=== PATIENT | male | born 1985 | race Caucasian/White ===

== ENCOUNTER 2020-12-17 14:43 | Emergency (ER) | payer BC ==
[~2020-12-17] VITALS: Ht 167.6 cm; Wt 95.3 kg
[2020-12-17 14:47] VITALS: BP_SYST 149
--- NOTE | 2020-12-17 14:50 | NUR ---
Patient to ER bed 03 to gown for evaluation. Side rails up.
--- NOTE | 2020-12-17 14:55 | NUR ---
ER at bedside examining patient.
--- NOTE | 2020-12-17 15:05 | NUR ---
Pt. brought self in after a fall, stated slipped in garage twisted left knee and hurt left wrist breaking fall, pt. denies need for pain med. ice pack to left wrist
[2020-12-17] MEDS ORDERED: IBUP-1971 PO (15:54)
[2020-12-17] MEDS ORDERED: HYDR-3917 PO (15:54)
--- NOTE | 2020-12-17 16:07 | NUR ---
knee immobilizer on and crutches given with instruction
[2020-12-17] MEDS ORDERED: KETOROLAC TROMETHAMINE 60 MG/2 ML VIAL IM ONE (16:30)
[2020-12-17 16:41] VITALS: BP_SYST 132
--- NOTE | 2020-12-17 16:42 | NUR ---
Patient given written and verbal discharge instructions and verbalizes understanding. discussed with patient the results and treatment provided. Patient in stable condition. ID arm band removed. Rx of [place] and [place] given. Patient educated on pain management and to follow up with PMD. Pain Scale 3. Opportunity for questions provided and answered. Medication side effect fact sheet provided.
== END 2020-12-17 16:42 | disposition home or self-care (01) ==
LOC: SED 14:43
DX: S83.92XA Sprain of unspecified site of left knee, initial encounter (principal); S63.502A Unspecified sprain of left wrist, initial encounter; Z79.899 Other long term (current) drug therapy; W01.0XXA Fall on same level from slipping, tripping and stumbling without subsequent striking against object, initial encounter; Y93.89 Activity, other specified; Y92.89 Other specified places as the place of occurrence of the external cause; Y99.8 Other external cause status
CPT/HCPCS: 29505; 73110; 73564; 96372; 99284; J1885

== ENCOUNTER 2022-12-14 16:44 | Emergency (ER) | payer BC ==
[~2022-12-14] VITALS: Ht 188 cm; Wt 97.5 kg
[~2022-12-14 16:44] MED LIST: HYDR-3917 PO; IBUP-1971 PO
[2022-12-14 17:21] VITALS: BP_SYST 133
--- NOTE | 2022-12-14 18:30 | NUR ---
PT BIB SELF AWAKE AND ALERT AOX4, NO SOB. PT C/O FACIAL SWELLING SINCE 1000 TODAY. PT DENIES EATING ANYTHING TODAY. PT HAS NO HX AND NO SX. PT DENIESN/V/D. PT DENIES SOB.
--- NOTE | 2022-12-14 18:31 | NUR ---
MD DR FULTON AT BEDSIDE
[2022-12-14] MEDS ORDERED: DIPHENHYDRAMINE INJ 50 MG/ML VIAL IVP ONE (19:00)
[2022-12-14] MEDS ORDERED: methylPREDNISolone SOD SUCC/PF 62.5 MG/ML VIAL IVP ONE (19:30)
--- NOTE | 2022-12-14 19:37 | NUR ---
REPORT GIVEN TO CARRIE JHAVERI.
[2022-12-14] MEDS ORDERED: FEXO180T94 PO (19:40)
[2022-12-14] MEDS ORDERED: MED4 PO (19:40)
[2022-12-14 19:45] VITALS: BP_SYST 129
--- NOTE | 2022-12-14 19:50 | NUR ---
Patient given written and verbal discharge instructions and verbalizes understanding. ER MD FULTON discussed with patient the results and treatment provided. Patient in stable condition. ID arm band removed. IV catheter removed intact and dressing applied, no active bleeding. Rx of MEDROL given. Patient educated on pain management and to follow up with PMD. Pain Scale . Opportunity for questions provided and answered. Medication side effect fact sheet provided.
== END 2022-12-14 19:50 | disposition home or self-care (01) ==
LOC: SED 16:44
DX: T78.3XXA Angioneurotic edema, initial encounter (principal); R22.0 Localized swelling, mass and lump, head; Z79.899 Other long term (current) drug therapy
CPT/HCPCS: 99284; 96374; 96375; J1200; J2930